=== PATIENT | male | born 1990 | race Hispanic/Latino ===

== ENCOUNTER 2020-07-04 06:52 | Outpatient (NON) | payer OTHER, SELFPAY ==
[2020-07-04 19:19] LABS: SARS-CoV-2 RNA PCR Positive
== END 2020-07-04 06:53 ==
PROVIDERS: PCP Family Medicine; Visit Provider Family Medicine
DX: R68.89 Other general symptoms and signs (principal); U07.1 COVID-19
CPT/HCPCS: 87635; C9803; U0003

== ENCOUNTER 2020-10-03 15:25 | Emergency (ER) | payer OTHER, SELFPAY ==
--- NOTE | 2020-10-03 15:46 | ECG_ITS ---
Measurements Intervals [place] Rate: P: SC: QRS: QRSD: T: QT: QTc: Interpretive Statements SINUS RHYTHM POSSIBLE LEFT ATRIAL ENLARGEMENT INTRAVENTRICULAR CONDUCTION DELAY BORDERLINE ECG Electronically Signed On 10-05-2020 12:59:34 [employer]CH[employer] by Adan Canela D.O.
[2020-10-03 15:47] VITALS: BP 138/73; PULSE 76; RESP 16; TEMP 37.4; O2SAT 100
--- NOTE | 2020-10-03 16:05 | ED.CHESTPAIN ---
HPI - Chest Pain General Chief Complaint: Chest Pain Stated Complaint: CP Source: patient and RN notes reviewed Mode of arrival: ambulatory Limitations: no limitations History of Present Illness HPI narrative: This is a 30-year-old white male that presented to urgent care today complaining of chest pains with shortness of breath, and dizziness, diarrhea frequent urinations. According to patient he was diagnosed with Covid in June patient noted at that time he did not have shortness of breath but shortly afterwards he developed shortness of breath he also noted that he was having chest pain that last approximately 10 minutes he described the chest pain as a burning sensation to the left side of his chest that was accompanied with shortness of breath. Patient does have a history of GERD he notes that the pain that he is currently feeling does not feel like GERD. Patient noted that today after lunch he had increased chest pain that did not go away with shortness of breath and also dizziness he also noted that he developed frequent urination with diarrhea. Patient has been transferred to [facility] for further testing to rule out [place]. He did receive aspirin before discharge his EKG indicated sinus rhythm with a heart rate of 61. Patient declined EMS transport to [facility] he was advised that we recommend transport via EMS due to safety reasons. Patient will be transported himself over to ed. MD complaint: chest pain Related Data Home Medications Medication Instructions Recorded Confirmed No Home Medications 10/03/20 10/03/20 Allergies Allergy/AdvReac Type Severity Reaction Status Date / Time lactose AdvReac Unknown Verified 10/03/20 15:47 Review of Systems Review of Systems: All systems reviewed & are unremarkable except as noted in HPI and below PMFSH Family History Family History Father Diabetes mellitus Grandparent Diabetes mellitus Social History Social History Smoking status: Current every day smoker Second hand tobacco smoke exposure: No Alcohol intake: current Gender identity (if verbalized by the patient): Male Exam Narrative: Exam Narrative: GENERAL: This is a well-nourished, well-developed patient, in no apparent distress. HEAD: normocephalic, atraumatic. EYES: PERRL. Sclera clear/white. Vision is grossly intact. EARS: External ears normal, auditory canals clear and without drainage, TMs normal without perforation. Hearing grossly intact. NOSE: External nose normal with no obvious nasal discharge, nares without redness, no rhinorrhea. THROAT: Mucous membranes moist, posterior pharynx clear. NECK: Neck supple, non-tender without lymphadenopathy, masses or thyromegaly. CARDIOVASCULAR: Regular rate and rhythm without murmurs, gallops, or rubs. RESPIRATORY: Clear to auscultation. Breath sounds equal bilaterally. No wheezes, rales, or rhonchi. GASTROINTESTINAL: Abdomen soft, non-tender, nondistended. Bowel sounds are active. No hepato-splenomegaly, or palpable masses. No guarding. SKIN: warm, intact with no suspicious lesions or rash, good texture and turgor. NEURO: awake, alert, and oriented to person, place and time. There were no obvious focal neurologic abnormalities. Steady gait EXTREMITIES: Normal range of motion. No edema. No calf tenderness. Negative Homans sign bilaterally. BACK: Nontender without deformity or crepitance. No flank tenderness. Course Course Emergency Course: Patient was transferred to [facility] for further testing Vital Signs Vital signs: Vital Signs Temperature 99.4 F 10/03/20 15:47 Pulse Rate 76 10/03/20 15:47 Respiratory Rate 16 10/03/20 15:47 Blood Pressure 138/73 10/03/20 15:47 Pulse Oximetry 100 10/03/20 15:47 Temperature 99.4 F 10/03/20 15:47 Pulse Rate 76 10/03/20 15:47 Respiratory Rate 16
[2020-10-03] MEDS: ASPIRIN 325 MG TABLET PO (16:07)
== END 2020-10-03 16:07 | disposition short-term general hospital (02) ==
PROVIDERS: Emergency Provider Nurse Practitioner; PCP Family Medicine
DX: R06.00 Dyspnea, unspecified (principal); R07.9 Chest pain, unspecified; F17.200 Nicotine dependence, unspecified, uncomplicated; K21.9 Gastro-esophageal reflux disease without esophagitis
CPT/HCPCS: 93005; 99203; A9270; G0463

== ENCOUNTER 2020-10-03 16:21 | Emergency (ER) | payer OTHER, SELFPAY ==
[2020-10-03] VITALS (14 sets, daily range): BP systolic 129–145; BP diastolic 76–83; PULSE 65–80; RESP 14–20; TEMP 36.7; O2SAT 93–100
--- NOTE | ~2020-10-03 | XR_ITS ---
EXAMINATION: XR chest 2V EXAM DATE: 10/03/2020 17:02 INDICATION: Left-sided upper chest pain worsening today with exertion. Symptoms for 3 months. TECHNIQUE: Frontal and lateral projections of the chest obtained and reviewed. There is no prior angela dy for comparison. FINDINGS: The lungs are clear. There are no pleural effusions. The cardiomediastinal silhouette is within normal limits. There is no pneumothorax suspected. The bones and soft tissues are unremarkab le. IMPRESSION: No acute cardiopulmonary findings. Reviewed, dictated and finalized at location [facility]
--- NOTE | 2020-10-03 16:32 | ECG_ITS ---
Measurements Intervals [place] Rate: 75 P: 49 ND: 175 QRS: 45 QRSD: 114 T: 17 QT: 390 QTc: 438 Interpretive Statements SINUS RHYTHM POSSIBLE LEFT ATRIAL ENLARGEMENT INTRAVENTRICULAR CONDUCTION DELAY BASELINE ARTIFACT- I, II, AVR, AVF BORDERLINE ECG Electronically Signed On 10-03-2020 16:51:50 [employer] by Adan Canela D.O.
[2020-10-03 16:57] LABS: Basophils Percent Auto 0.5 % (0.2-1.2); Eosinophils Percent Auto 0.2 % (0-4.4); Hematocrit 46.2 % (42.0-52.0); Immature Granulocyte Absolute 0.03 K/mm3 (0.00-0.031); Immature Granulocyte Percent A 0.3 % (0-0.5); Lymphocytes Absolute Auto 2.07 K/mm3 (0.9-3.2); Lymphocytes Percent Auto 23.7 % (18.3-44.2); Mean Corpuscular HGB Conc 34.6 g/dl (32-36); Mean Corpuscular Hemoglobin 29.3 pg (26-34); Mean Corpuscular Volume 84.5 fl (80-100); Mean Platelet Volume 9.6 fl (7.4-10.4); Monocytes Absolute Auto 0.5 K/mm3 (0.1-0.6); Monocytes Percent Auto 5.8 % (2.6-8.5); Neutrophils Absolute Auto 6.1 K/mm3 (1.3-6.7); Neutrophils Percent Auto 69.5 % (45.5-73.1); Platelet Count Result 253 k/mm3 (150-375); Red Blood Count 5.47 M/mm3 (4.6-6.20); Red Cell Distribution Width 13.2 % (11.5-14.5); White Blood Count 8.7 K/mm3 (4.5-10.0)
--- NOTE | 2020-10-03 16:59 | ED.CHESTPAIN ---
HPI - Chest Pain General Chief Complaint: Chest Pain Stated Complaint: CP Time Seen by Provider: 10/03/20 16:38 Source: patient Mode of arrival: ambulatory Limitations: no limitations History of Present Illness HPI narrative: Patient is a 30-year-old male complaining of left chest wall pain, 3 out of 10, sharp, nonradiating x1 month, intermittent, but today states it was constant and that is why he came to the emergency room. Patient states that the pain is worse when he takes a deep breath. Patient denies any shortness of breath, abdominal pain, nausea, vomiting, diaphoresis, fever or chills. Related Data Home Medications Medication Instructions Recorded Confirmed omeprazole [Prilosec] 20 mg PO DAILY 10/03/20 10/03/20 Allergies Allergy/AdvReac Type Severity Reaction Status Date / Time lactose Allergy Unknown BLOATING, Verified 10/03/20 16:30 GAS, ABD PAIN, DIARRHEA Review of Systems Review of Systems: All systems reviewed & are unremarkable except as noted in HPI and below Constitutional: Constitutional: Denies body ache(s), Denies chills, Denies excessive sweating, Denies fatigue, Denies fever(s), Denies headache(s), Denies lethargy, Denies malaise, Denies weakness and Denies weight loss Eyes: Eyes: Denies blurry vision, Denies change in vision and Denies loss of vision ENT: Denies dizziness, Denies ear discharge, Denies headache(s), Denies lip swelling, Denies epistaxis, Denies nasal congestion, Denies neck pain, Denies throat swelling and Denies tongue swelling Cardiovascular: Cardiovascular: Denies diaphoresis, Denies rapid heart rate, Denies edema, Denies irregular heart rhythm, Denies lightheadedness, Denies palpitations, Denies dyspnea and Denies dyspnea on exertion Respiratory: Respiratory: Denies chest congestion, Denies cough, Denies hemoptysis, Denies dyspnea and Denies dyspnea on exertion Gastrointestinal: Gastrointestinal: Denies abdominal pain, Denies melena, Denies hematochezia, Denies diarrhea, Denies nausea, Denies vomiting and Denies hematemesis Musculoskeletal: Musculoskeletal: Denies abnormal gait, Denies deformity, Denies joint swelling, Denies limited range of motion, Denies neck pain and Denies numbness Neurologic: Denies Abnormal speech present, Denies abnormal gait, Denies confusion, Denies dizziness, Denies headache(s), Denies focal weakness, Denies loss of vision, Denies numbness, Denies Other visual disturbances, Denies Sensory deficit (Neuro) and Denies weakness Psychiatric: Psychiatric: Denies confusion, Denies depression, Denies auditory hallucinations, Denies homicidal ideation and Denies suicidal ideation Endocrine: Endocrine: Denies cold intolerance, Denies excessive sweating, Denies fatigue, Denies heat intolerance and Denies palpitations Hematologic/Lymphatic: Hematologic/Lymphatic: Denies easy bleeding and Denies easy bruising Allergic/Immunologic: Allergic/Immunologic: Denies lip swelling, Denies throat swelling and Denies tongue swelling PMFSH Social History Social History Gender identity (if verbalized by the patient): Male Exam Const: General: cooperative, healthy appearing, comfortable, no acute distress, well developed, alert and awake; No confusion Orientation/consciousness: oriented to person, oriented to place, oriented to time, patient oriented x3 and No confusion Limitations: no limitations HENMT: Head: normal to inspection, normocephalic and atraumatic Ears: hearing grossly normal bilaterally, TM normal on the right and TM normal on the left General nose exam: Normal external nose present, Normal nares present and No nasal discharge present Face and sinus: normal facial exam Mouth: Yes Normal oral and palatal mucosa present, Yes lip normal, Yes tongue normal and Yes oropharynx normal Throat: posterior oropharynx normal, tonsils normal and uvula midline Eyes: General: appearance normal, both eyes and all related structures Pupils: Equal, round and
[2020-10-03 17:08] LABS: Anion Gap 11 mmol/L (8-16); Blood Urea Nitrogen 10 mg/dL (9-20); Calcium 10.1 mg/dL (8.4-10.2); Carbon Dioxide 27 mmol/L (22-30); Chloride 102 mmol/L (98-107); Estimated CRCL calculation 103 ml/min; Estimated Glomerular Filt Rate > 60; Glucose 101 mg/dL (75-110); Potassium 4.1 mmol/L (3.4-5.0); Sodium 140 mmol/L (137-145)
[2020-10-03 17:15] LABS: INR 0.9; Prothrombin Time 12.9 Seconds (11.1-14.7)
[2020-10-03 17:16] LABS: Partial Thromboplastin Time 25.6 SECONDS (22.3-36.8)
[2020-10-03 17:20] LABS: Troponin I < 0.012 ng/mL (0.000-0.034)
== END 2020-10-03 18:58 | disposition home or self-care (01) ==
PROVIDERS: Emergency Provider Emergency Medicine; PCP Family Medicine
DX: R07.89 Other chest pain (principal); R94.31 Abnormal electrocardiogram [ECG] [EKG]; I45.9 Conduction disorder, unspecified
CPT/HCPCS: 36415; 71046; 80048; 84484; 85025; 85610; 85730; 93005; 99284; A9270

== ENCOUNTER 2021-01-07 14:54 | Outpatient (CLI) | payer OTHER, SELFPAY ==
[2021-01-15 10:50] LABS: Tissue Transglutaminase IgA Ab 1 U/mL (<4)
[2021-01-15 13:04] LABS: Tissue Transglutaminase IgG Ab 3 U/mL (<6)
== END 2021-01-07 14:55 | disposition home or self-care (01) ==
LOC: ANHLAB 14:58
PROVIDERS: PCP Family Medicine; Visit Provider Nurse Practitioner Family
DX: R14.0 Abdominal distension (gaseous) (principal); R19.7 Diarrhea, unspecified
CPT/HCPCS: 36415; 83516

== ENCOUNTER → 2021-03-09 00:21 | Outpatient (CLI) | payer OTHER, SELFPAY ==
[2021-03-09 17:56] LABS: SARS-CoV-2 RNA PCR Negative
== END ==
PROVIDERS: PCP Family Medicine; Visit Provider Internal Medicine Gastroenterology
DX: Z01.812 Encounter for preprocedural laboratory examination (principal); Z20.822 Contact with and (suspected) exposure to COVID-19
CPT/HCPCS: C9803; U0003; U0005

== ENCOUNTER 2021-03-12 02:20 | Day surgery (SDC) | payer OTHER, SELFPAY ==
[2021-03-01 12:46] VITALS: BMI 31.1
[2021-03-12 07:36] VITALS: BP 129/85; PULSE 75; RESP 16; TEMP 36.3; O2SAT 98; BMI 31.8
--- NOTE | 2021-03-12 07:51 | WPDANESEPPF ---
Anes - Initial Pre Proc Eval Procedure: Operation Date: 03/12/21 08:30 Proposed Procedures p Esophagogastroduodenoscopy - Abdifatah Mari MD Date/Time: 03/12/21 07:51 Surgeon: Abdifatah Mari MD Pre Op Diagnosis: GERD Patient Data Age: 30 Gender: M Height: 1.73 m Weight: 95.1 kg Last Vital Signs Temp 36.3 C L 03/12/21 07:36 Pulse 75 03/12/21 07:36 Resp 16 03/12/21 07:36 BP 129/85 03/12/21 07:36 Pulse Ox 98 03/12/21 07:36 Allergies Allergy/AdvReac Type Severity Reaction Status Date / Time lactose Allergy Unknown BLOATING, Verified 03/12/21 07:32 GAS, ABD PAIN, DIARRHEA Home Medications Medication Instructions Recorded Confirmed Type omeprazole [Prilosec] 20 mg PO DAILY 10/03/20 03/12/21 History galcanezumab-gnlm [Emgality Pen] 120 mg SUBCUT MONTHLY 03/01/21 03/12/21 History Patient hx anesthesia problems: none Family hx anesthesia problems: none [facility] Past Medical History Medical History (Updated 01/07/21 @ 15:47 by Luis Daniel Mcclain MD) GERD (gastroesophageal reflux disease) Irritable bowel syndrome with diarrhea Family History Family History Father Diabetes mellitus Grandparent Diabetes mellitus Social History Social History Years smoked: 7 Smoking status: Current some day smoker Second hand tobacco smoke exposure: No Alcohol intake: current Alcohol use details: socially Living arrangements: with family Gender identity (if verbalized by the patient): Male Spiritual care concerns: No Anes - Eval Final PreProcedure Day of Procedure 03/12/21 07:51 Patient weight: overweight Heart: regular rate and rhythm Lungs: clear to auscultation and normal air movement Airway: Mallampati scale class II Neurological: alert and oriented Last oral intake: >/= 8 hours ASA classification: II Emergent: no Anesthetic plan: proceed Anesthesia type and monitoring: general GIVS Informed Consent: The patient's anesthetic plan and its attendant risks and benefits were discussed with the patient/family/POA. Questions were solicited and answers provided to the satisfaction of the patient/family/POA.
[2021-03-12] MEDS: LACTATED RINGERS 1,000 ML 150 ML IV CONT (07:52)
--- NOTE | 2021-03-12 07:54 | WPDHPUPDATE1 ---
History and Physical Update Update Date/Time: 03/12/21 07:54 History and Physical has been reviewed, including an updated exam of the patient. There are NO changes in the patient's condition. Risks, benefits, and alternatives have been discussed and questions answered. Patient agrees to proceed with procedure.
--- NOTE | 2021-03-12 07:54 | WPDGICN ---
Assessment and Plan Assessment and plan (1) Irritable bowel syndrome with diarrhea: Code(s): K58.0 - Irritable bowel syndrome with diarrhea Status: Acute Assessment and Plan: Patient with long history of abdominal pain in consider irritable bowel syndrome. He has been unable to afford medications and intolerant of some medications plan is continue fiber supplementation an EGD is recommended because of ongoing pain in this report follow separately. (2) GERD (gastroesophageal reflux disease): Code(s): K21.9 - Gastro-esophageal reflux disease without esophagitis Status: Acute Assessment and Plan: Patient felt to have GE reflux disease. Plan is for EGD to assess more thoroughly. The same time any additional pathology will be reviewed. Patient currently on omeprazole will continue this medication. GI Consult Note Consult date/time: 03/12/21 07:54 HPI: Gregory Goode Jr. is a 30 year old male With a long history of IBS. Patient complains of gurgling in his abdomen. He has had diarrhea rather persistently. Occasional epigastric discomfort. There is a question of acid reflux in the past. Patient has been on therapy for are IBS with antispasmodic agents but this was discontinued because it made him feel poorly. Patient has tried fiber supplementation in this is failed to alleviate his diarrhea. Patient was given a prescription for Viberzi, and Xifaxan subsequently, but was unable take these medications because of their excess cost. Recent colonoscopy was unremarkable. Patient presents today for EGD because of ongoing abdominal discomfort. Review of Systems Review of Systems: All systems reviewed & are unremarkable except as noted in HPI and below PMFSH Past Medical History Medical History (Updated 01/07/21 @ 15:47 by Luis Daniel Mcclain MD) GERD (gastroesophageal reflux disease) Irritable bowel syndrome with diarrhea Family History Family History Father Diabetes mellitus Grandparent Diabetes mellitus Social History Social History Years smoked: 7 Smoking status: Current some day smoker Second hand tobacco smoke exposure: No Alcohol intake: current Alcohol use details: socially Living arrangements: with family Gender identity (if verbalized by the patient): Male Spiritual care concerns: No Meds Home Medications and Allergies Home Medications Medication Instructions Recorded Confirmed Type omeprazole [Prilosec] 20 mg PO DAILY 10/03/20 03/12/21 History galcanezumab-gnlm [Emgality Pen] 120 mg SUBCUT MONTHLY 03/01/21 03/12/21 History Allergies Allergy/AdvReac Type Severity Reaction Status Date / Time lactose Allergy Unknown BLOATING, Verified 03/12/21 07:32 GAS, ABD PAIN, DIARRHEA Vital Signs Vital Signs - 24 hr 03/12/21 07:36 Temperature 97.4 F L Pulse Rate 75 Respiratory Rate 16 Blood Pressure 129/85 Pulse Oximetry 98 Exam Narrative: Exam Narrative: Physical exam reveals patient be alert. Vital signs stable. HEENT exam is unremarkable. Patient is anicteric. Lungs are clear to auscultation and percussion. Heart is without murmur or extra sounds. Abdominal exam bowel sounds are present soft nontender with no organomegaly. Digital external rectal exam is normal.
[2021-03-12 08:40] VITALS: BP 114/63; PULSE 66; RESP 18; O2SAT 96
[2021-03-12 08:50] VITALS: BP 108/65; PULSE 62; RESP 20; O2SAT 97
[2021-03-12 09:00] VITALS: BP 119/75; PULSE 64; RESP 20; O2SAT 98
--- NOTE | 2021-03-12 09:44 | SUR.PHASEII ---
0852: DR CORRALES IN TO SEE PT, PT SLEEPING, SPOKE WITH SPOUSE BUT REQUESTS TO SEE PT ONCE AWAKE. 0944: DR CORRALES IN SEEING PT.
== END 2021-03-12 09:50 | disposition home or self-care (01) ==
PROVIDERS: PCP Family Medicine; Visit Provider Internal Medicine Gastroenterology
PROC: 0DJ08ZZ Inspection of Upper Intestinal Tract, Via Natural or Artificial Opening Endoscopic (ICD-10-PCS; CPT 43235; principal; 2021-03-12 08:30)
DX: K21.00 Gastro-esophageal reflux disease with esophagitis, without bleeding (principal); K58.0 Irritable bowel syndrome with diarrhea; F17.200 Nicotine dependence, unspecified, uncomplicated
CPT/HCPCS: 43239; 88305; C9803; J2704; J7120; U0003; U0005

== ENCOUNTER 2021-03-12 08:07 | Outpatient (NON) | payer OTHER, SELFPAY ==
[2021-03-20 01:43] LABS: Pancreatic Elastase, Stool >500 mcg/g
== END 2021-03-12 08:08 | disposition home or self-care (01) ==
PROVIDERS: PCP Family Medicine; Visit Provider Nurse Practitioner Family
DX: R19.7 Diarrhea, unspecified (principal); Z53.9 Procedure and treatment not carried out, unspecified reason
CPT/HCPCS: 99199; 36415

== ENCOUNTER 2021-12-20 07:54 | Outpatient (CLI) | payer OTHER, SELFPAY ==
[2021-12-20 08:45] LABS: Hematocrit 43.9 % (42.0-52.0); Hemoglobin 15.1 g/dL (14.0-18.0); Mean Corpuscular HGB Conc 34.4 g/dl (32-36); Mean Corpuscular Hemoglobin 28.5 pg (26-34); Mean Corpuscular Volume 82.8 fl (80-100); Mean Platelet Volume 9.3 fl (7.4-10.4); Platelet Count Result 313 k/mm3 (150-375); Red Cell Distribution Width 13.2 % (11.5-14.5); White Blood Count 10.7 K/mm3 (4.5-10.0)
[2021-12-20 09:03] LABS: Alanine Aminotransferase 42 U/L (4-50); Albumin Level 4.3 g/dL (3.5-5.1); Alkaline Phosphatase 102 U/L (38-126); Anion Gap 6 mmol/L (8-16); Aspartate Amino Transferase 32 U/L (17-59); Bilirubin,Total 0.6 mg/dL (0.2-1.3); Blood Urea Nitrogen 11 mg/dL (9-20); Calcium 8.8 mg/dL (8.4-10.2); Carbon Dioxide 29 mmol/L (22-30); Chloride 108 mmol/L (98-107); Estimated Glomerular Filt Rate > 60; Glucose 98 mg/dL (65-110); Potassium 3.7 mmol/L (3.4-5.0); Sodium 143 mmol/L (137-145)
== END 2021-12-20 07:55 | disposition home or self-care (01) ==
PROVIDERS: PCP Family Medicine; Visit Provider Nurse Practitioner Family
DX: R19.7 Diarrhea, unspecified (principal)
CPT/HCPCS: 36415; 80053; 85027; 87045; 87427

== ENCOUNTER 2022-08-10 12:23 | Emergency (ER) | payer BC, SELFPAY ==
[2022-08-10 13:13] VITALS: BP 131/79; PULSE 83; RESP 20; TEMP 36.4; O2SAT 99
--- NOTE | 2022-08-10 14:33 | ED.URI ---
HPI - URI/Sore Throat General Chief Complaint: Upper Respiratory Infection Stated Complaint: Sore Throat Time Seen by Provider: 08/10/22 14:33 Source: patient Mode of arrival: ambulatory Limitations: no limitations History of Present Illness HPI Narrative: 32-year-old male presents with complaint of congestion, cough, sore throat for 3 weeks. States he was feeling better earlier this week for 2 days and then symptoms started again. States sore throat is now worse. Reports body aches and chills. Afebrile. Denies nausea vomiting diarrhea. No chest pain or shortness breath. Taking DayQuil NyQuil to treat symptoms. All systems reviewed and negative except as noted above. Related Data Home Medications Medication Instructions Recorded Confirmed omeprazole 20 mg capsule,delayed 20 mg PO DAILY 10/03/20 08/10/22 release Allergies Allergy/AdvReac Type Severity Reaction Status Date / Time lactose Allergy Unknown BLOATING, Verified 08/10/22 14:27 GAS, ABD PAIN, DIARRHEA Review of Systems Review of Systems: CONSTITUTIONAL: Denies fever, chills, or sweats. EYES: Denies visual changes, redness, or discharge. ENT: Reports rhinorrhea, congestion, sore throat. Denies otalgia. CARDIOVASCULAR: Denies chest pain, palpitations, or edema. RESPIRATORY: reports cough. Denies dyspnea. GASTROINTESTINAL: Denies abdominal pain, nausea, vomiting, or diarrhea. GENITOURINARY: Denies dysuria or hematuria. SKIN: Denies rash or itching. MUSCULOSKELETAL: Denies back pain, joint pain, or myalgia. NEUROLOGIC: Denies headache, numbness, or weakness. PSYCHIATRIC: Denies anxiety or depression. All other systems reviewed are negative, except as documented in HPI. [facility] Past Medical History Medical History (Updated 08/10/22 @ 15:21 by Yudith Monae NP) Diarrhea GERD (gastroesophageal reflux disease) Irritable bowel syndrome with diarrhea Surgical History Surgical History History of vasectomy Family History Family History Father Diabetes mellitus Grandparent Diabetes mellitus Social History Social History Years smoked: 7 Smoking status: Current some day smoker Second hand tobacco smoke exposure: No Alcohol intake: current Alcohol use details: socially Gender identity (if verbalized by the patient): Male Spiritual care concerns: No Comments At time of signature, agree with nursing past medical, surgical, social and family history. There is no relevant family history pertinent to the presenting complaint. Exam Narrative: GENERAL: This is a well-nourished, well-developed patient, in no apparent distress. HEAD: normocephalic, atraumatic. EYES: PERRL. Sclera clear/white. Vision is grossly intact. EARS: External ears normal, auditory canals clear and without drainage, fluid bilateral TMs with erythema. NOSE: External nose normal with Clear nasal drainage, moderate congestion. Bilateral maxillary sinus tenderness. THROAT: Mucous membranes moist, Erythema and swelling posterior pharynx. NECK: Neck supple, non-tender without lymphadenopathy, masses or thyromegaly. CARDIOVASCULAR: Regular rate and rhythm without murmurs, gallops, or rubs. RESPIRATORY: Clear to auscultation. Breath sounds equal bilaterally. No wheezes, rales, or rhonchi. SKIN: warm, Dry, intact with no suspicious lesions or rash, good texture and turgor. NEURO: awake, alert, and oriented to person, place and time. There were no obvious focal neurologic abnormalities. EXTREMITIES: No joint tenderness, effusion, or edema noted. Course Course Level of Care: Express Care Visit Vital Signs Vital signs: Vital Signs Temperature 36.4 C 08/10/22 13:13 Pulse Rate 83 08/10/22 13:13 Respiratory Rate 20 08/10/22 13:13 Blood Pressure 131/79 08/10/22 13:13 P
== END 2022-08-10 15:36 | disposition home or self-care (01) ==
PROVIDERS: Emergency Provider Nurse Practitioner Family; PCP Family Medicine
DX: J01.90 Acute sinusitis, unspecified (principal); H65.03 Acute serous otitis media, bilateral; F17.290 Nicotine dependence, other tobacco product, uncomplicated; K21.9 Gastro-esophageal reflux disease without esophagitis
CPT/HCPCS: 87081; 87804; 87880; 99213; G0463

== ENCOUNTER 2025-07-09 18:55 | Emergency (ER) | payer BC, SELFPAY ==
--- NOTE | ~2025-07-09 | XR_ITS ---
EXAMINATION: XR abdomen/kub 1V, 07/09/2025 17:08 CDT HISTORY: LT flank pain, hematuria, couple hours, hx of stones COMPARISON: No comparisons available. Technique: 3 view. Findings: Bowel gas pattern unremarkable. No obstruction. No free air. No abnormal calcifications No acute osseous abnormality. Impression: 1. No acute abnormality. Reviewed, dictated and finalized at location P. Impression: 1. No acute abnormality.
--- NOTE | 2025-07-09 19:01 | ED_ITS ---
HPI - Back Pain/Injury General Chief Complaint: Back Pain/Injury Stated Complaint: lower back pain Time Seen by Provider: 07/09/25 18:57 Source: patient Mode of arrival: ambulatory Limitations: no limitations History of Present Illness HPI Narrative: Patient is a 35-year-old male who presents with left flank pain. Patient has history of kidney stones on the right side and states this feels the same. Patient has also noticed blood in urine. Related Data Allergies Allergy/AdvReac Type Severity Reaction Status Date / Time lactose Allergy Unknown BLOATING, Verified 07/09/25 19:27 GAS, ABD PAIN, DIARRHEA Review of Systems Review of Systems: All systems reviewed & are unremarkable except as noted in HPI and below Constitutional: Constitutional: Denies body ache(s), Denies chills, Denies fatigue, Denies fever(s), Denies headache(s), Denies malaise and Denies weakness Eyes: Eyes: Denies blurry vision, Denies irritation and Denies loss of vision ENT: Denies otalgia, Denies headache(s), Denies nasal discharge, Denies sinus pain and Denies sore throat Cardiovascular: Cardiovascular: Denies chest pain, Denies irregular heart rhythm and Denies dyspnea Respiratory: Respiratory: Denies dyspnea Gastrointestinal: Gastrointestinal: Denies abdominal pain, Denies melena, Denies hematochezia, Denies diarrhea, Denies nausea and Denies vomiting Genitourinary: Genitourinary: Reports hematuria and Reports flank pain Musculoskeletal: Musculoskeletal: Reports back pain, Denies myalgias and Denies arthralgias Integumentary/Breasts: Skin/Breast: Denies pruritus and Denies rash Neurologic: Denies headache(s), Denies loss of vision and Denies weakness Psychiatric: Psychiatric: Reports no additional psychiatric complaints Endocrine: Endocrine: Denies fatigue PMFSH Past Medical History Medical History Diarrhea Irritable bowel syndrome with diarrhea GERD (gastroesophageal reflux disease) Surgical History Surgical History History of vasectomy Family History Family History Father Diabetes mellitus Grandparent Diabetes mellitus Social History Social History Years smoked: 7 Smoking status: Current some day smoker Tobacco type: cigarettes Second hand tobacco smoke exposure: No Alcohol intake: current Alcohol use details: socially Substance use: never Substance use type: does not use Living arrangements: with family Gender identity (if verbalized by the patient): Male Spiritual care concerns: No Comments At time of signature, agree with nursing past medical, surgical, social and family history. There is no relevant family history pertinent to the presenting complaint. Exam Const: General: cooperative, healthy appearing, comfortable, no acute distress and well nourished Nutritional Appearance: well nourished Orientation/ consciousness: patient oriented x3 Limitations: no limitations HENMT: Head: normal to inspection, normocephalic and atraumatic Ears: hearing grossly normal bilaterally and external ears normal Face/Nose/Sinus: Normal external nose present, normal facial exam and face symmetric Face and sinus: normal facial exam and face symmetric Mouth: Yes lip normal Eyes: General: appearance normal, both eyes and all related structures Alignment and Position: alignment normal and position normal Periorbital: periorbital findings normal Eyelids: eyelids normal Pupils: Equal, round and reactive pupils present EOM: EOMs intact bilaterally Neck: Neck: normal visual inspection, full ROM and supple Chest: Chest palpation & inspection: normal inspection of the chest Resp: Effort & Inspection: normal respiratory effort and able to speak in complete sentences Auscultation: clear to auscultation bilaterally Cardio: Rate: regular rate Rhythm: regular rhythm Heart sounds: S1 normal heart sound present and S2 normal heart sound present GI: Inspection: normal to inspection Skin: General skin exam: normal color and no rashes or lesions noted Neuro: General: patient oriented x3 and moves all extremities Cranial nerves: Yes Equal, round and reactive pupils present Speech: normal speech Gait exam (Neuro): Normal gait present Extrem: General: normal to inspection, full ROM and no edema Psych: Appearance: grossly normal and well kempt Mental Status: mental status grossly normal Speech and movement: Normal speech and movement present Affect: normal affect Attitude: cooperative Thought process: Normal thought process present Course Course Emergency Course: Patient is aware of diagnosis, understands and agrees to treatment plan. Anticipatory guidance given. Patient agrees to follow-up as directed and is aware of reasons to seek care at the emergency department. Portions of this record may have been created with voice recognition software Level of Care: Express Care Visit Vital Signs Vital signs: Vital Signs Temperature 36.9 C 07/09/25 19:02 Pulse Rate 66 07/09/25 19:02 Respiratory Rate 18 07/09/25 19:02 Blood Pressure 127/75 07/09/25 19:02 Pulse Oximetry 100 07/09/25 19:02 Oxygen Delivery Room Air 07/09/25 19:02 Temperature 36.9 C 07/09/25 19:02 Pulse Rate 66 07/09/25 19:02 Respiratory Rate 18 07/09/25 19:02 Blood Pressure 127/75 07/09/25 19:02 Pulse Oximetry 100 07/09/25 19:02 Oxygen Delivery Room Air 07/09/25 19:02 Reviewed MDM - Back Pain/Injury MDM Narrative Medical decision making narrative: Patient given shot of Toradol and prescription for Flomax along with a strainer. Patient has had kidney stones in the past but has always been able to pass them. Patient comfortable going home and trying to pass stone on his own Pt well hydrated appearing, in no respiratory distress, hemodynamically stable. Recommend supportive care. The patient is stable at time of discharge the clinical impression was discussed and the patient was given the opportunity to ask questions, which were addressed as completely as possible given the information available at present. Anticipatory guidance and return to care precautions were discussed and the importance of primary care follow-up was stressed and encouraged. The patient voiced understanding of the plan, indications to return, and the need for follow-up. Exam findings show no acute concerns or changes Patient is appropriate for outpatient treatment and follow-up. Differential Diagnosis Differential diagnosis: Likely sciatica, strain of lumbar region, renal colic, pyelonephritis and other (Kidney stone) Medical Records Attestation: I reviewed the patient's medical records. Lab Data Labs: Lab Results 07/09/25 Range/Units 19:09 POC Urine Color Dark POC Urine Clarity Cloudy POC Urine pH 5.5 POC Ur Specif [place] 1.030 POC Urine Protein 2+ (Negative) POC Ur Glucose (UA) Negative (Negative) POC Urine Ketones Trace (Negative) POC Urine Blood 3+ (Negative) POC Urine Nitrite Negative (Negative) POC Urine Bilirubin 1+ (Negative) POC Urine Urobilinogen 0.2 POC U Leukocyte Esteras Negative (Negative) Imaging Data Attestation: I personally reviewed and interpreted this imaging study as follows: My impression: calcifications noted at the left Ureterovesical junction. Radiologist's impression: EXAMINATION: XR abdomen/kub 1V, 07/09/2025 17:08 CDT HISTORY: LT flank pain, hematuria, couple hours, hx of stones COMPARISON: No comparisons available. Technique: 3 view. Findings: Bowel gas pattern unremarkable. No obstruction. No free air. No abnormal calcifications No acute osseous abnormality. Impression: 1. No acute abnormality. Reviewed, dictated and finalized at location P. Discharge Plan Discharge Clinical Impression: Kidney stone on left side Patient Disposition: Home Condition: Stable Instructions: Kidney Stones (ED), How to Strain Your Urine (ED) Additional Instructions: Flomax as prescribed. Pain medication as needed and directed. Drink plenty of fluids. Strain urine to collect stone. Call your doctor in the morning to make a follow-up appointment for further care. Return to the ER if needed for severely worsening symptoms or problems. Patient Language: Djiboutian Prescriptions: New tamsulosin 0.4 mg capsule 0.4 mg PO DAILY Qty: 7 0RF Follow-up/Referrals: Nikko Dan MD [Primary Care Provider, Family Practice] Stand Alone Forms: Work/School Release IP Time of Disposition: 19:28
[2025-07-09 19:02] VITALS: BP 127/75; PULSE 66; RESP 18; TEMP 36.9; O2SAT 100
[2025-07-09 19:11] LABS: EDUAAPPEAR Cloudy; EDUABILI 1+ (Negative); EDUABLOOD 3+ (Negative); EDUACOLOR1 Dark; EDUAGLUCOSE Negative (Negative); EDUAKETONE Trace (Negative); EDUALEUKO Negative (Negative); EDUANITRATE Negative (Negative); EDUAPH 5.5; EDUAPROTEIN 2+ (Negative); EDUASPGRAVITY 1.030; EDUAUROBILI 0.2
[2025-07-09] MEDS: KETOROLAC 30 MG/ML VIAL (*BKC) IM (19:31)
== END 2025-07-09 19:48 | disposition home or self-care (01) ==
PROVIDERS: Emergency Provider Nurse Practitioner Family; PCP Family Medicine
DX: N20.0 Calculus of kidney (principal); F17.210 Nicotine dependence, cigarettes, uncomplicated; K21.9 Gastro-esophageal reflux disease without esophagitis; Z98.52 Vasectomy status
CPT/HCPCS: 74018; 81003; 96372; 99213; G0463; J1885

== ENCOUNTER 2025-07-10 10:57 | Emergency (ER) | payer BC, SELFPAY ==
--- NOTE | ~2025-07-10 | CT_ITS ---
EXAMINATION: CT abdomen pelvis w con DATE: 07/10/2025 14:54 INDICATION: Left flank pain TECHNIQUE: Computed tomography (CT) of the abdomen and pelvis was performed with 100 mL Omnipaque-350 intravenous contrast. Automated exposure control and iterative reconstruction technique were employed. The dose-length product was 643.09 mGy-cm. COMPARISON: CT dated 06/23/2016 FINDINGS: Mild dependent atelectasis in both lower lobes. Heart size normal. No pericardial or pleural effusion. Liver, gallbladder, spleen, pancreas, bilateral adrenal glands and right kidney are normal. There is a mildly delayed left nephrogram and mild left hydroureteronephrosis extending to a 3 mm obstructing stone within 1 cm of the left ureterovesicular junction. Bladder is normal. Bowels including the appendix are normal. No free intraperitoneal gas or fluid. No pathologically enlarged abdominal or pelvic lymphadenopathy. Bones are unremarkable. IMPRESSION: 1. Obstructing 3 mm stone near the left ureterovesicular junction with mild left hydronephrosis and mildly delayed left nephrogram. Reviewed, dictated and finalized at location A. IMPRESSION: 1. Obstructing 3 mm stone near the left ureterovesicular junction with mild lef t hydronephrosis and mildly delayed left nephrogram.
[2025-07-10 11:26] VITALS: BP 140/85; PULSE 83; RESP 16; TEMP 36.8; O2SAT 98
[2025-07-10 11:54] LABS: Add Urine Microscopic? YES; Appearance Urine Cloudy (Clear); Glucose Urine UA Negative (Negative); Leukocyte Esterase Ur Negative LEU/UL (Negative); Nitrate Urine Negative (Negative); Specific Grav Ur 1.013 (1.001-1.035)
--- OUTSIDE RECORDS SUMMARY | 2025-07-10 12:12 | XMS_ITS | Clinical Summary ---
Author Organization [facility] Address [address] [place] [address] Care Team Providers Care French Tutor Name Role Phone Endy Nikki Vitale RN Unavailable [phone] Nikko Dan MD Primary Care Provider [phone] Source Comments [facility],non-owned Affiliates and Associated Physician Practices is amultiple site organization consisting of ambulatory clinics and hospital sitesin [place], [place], [place] and [place]. This disclosure is being madepursuant to the Care Everywhere program and may not contain all information available regarding this patient. Last updated 18.[facility] [employer] Allergies Active Allergy Reactions Criticality Noted Date Comments Minocycline 02/01/2014 Medications * Be aware that medications may not be up to date on this document. Alwaysverify current medications with the patient. esomeprazole (NEXIUM) 40 MG capsule Take 40 mg by mouth daily before breakfast. Active acetaminophen (TYLENOL) 325 MG tablet Take 2 Tabs by mouth every 4 hours as needed for Fever. Maximum allowable Acetaminophen amount = 4 Grams (4000 mg) / 24 hours. 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 Gender Identity Not on file Sexual Orientation Not on file Last Filed Vital Signs Vital Sign Reading Time Taken Comments Blood Pressure 110/65 02/04/2014 1:22 PM CDT Pulse 75 02/04/2014 1:22 PM CDT Temperature 36.3 C (97.4 F) 02/04/2014 1:22 PM CDT Respiratory Rate 18 02/04/2014 1:22 PM CDT Oxygen Saturation 99% 02/04/2014 1:22 PM CDT Inhaled Oxygen Concentration - - Weight 77.1 kg (170 lb) 02/01/2014 1:52 PM CDT Height 170.2 cm (5' 7) 02/01/2014 1:52 PM CDT Body Mass Index 26.63 02/01/2014 1:52 PM CDT Plan of Treatment Health Maintenance Due Date Last Done Comments HIV SCREENING 2004 HEPATITIS C SCREENING 05/21/2007 DTAP/TDAP/TD VACCINES (1 - Tdap) 2008 HEPATITIS B VACCINE (1 of 3 - 19+ 3-dose series) 2008 HPV VACCINE (1 - 3-dose SCDM series) 2016 DEPRESSION SCREENING 09/28/2024 COVID-19 VACCINE (1 - 2023-2 5 season) 2025 INFLUENZA VACCINE (#1) 2025 ZOSTER VACCINE (1 of 2) 2039 HIB VACCINE Aged Out No longer eligi ble based on patient's age to complete this topic MENINGOCOCCAL (Group B) VACC INE SHARED DECISION-MAKING Aged Out No longer eligibl e based on patient's age to complete this topic MENINGOCOCCAL GROUPS A/C/Y/W VACCINE Aged Out No longer eligible b ased on patient's age to complete this topic PNEUMOCOCCAL VACCINE Aged Out No long er eligible based on patient's age to complete [place] [address] [facility] [place] [address] [address] Advance Directives * Full Code (Latest Code Status on File) Date Activated Date Inactivated Comments 02/01/2014 4:49 PM 02/04/2014 3:52 PM Care Teams French Tutor Relationship Specialty Start Date End Date Nikko Dan MD [address] [place] [address] PCP - General Family Medicine 02/02/14 Nikki Schumacher, RN Steel Burner 02/02/14
[2025-07-10 12:21] LABS: Hematocrit 42.5 % (42.0-52.0); Hemoglobin 14.9 g/dL (14.0-18.0); Immature Granulocyte Percent A 0.4 % (0-0.5); Lymphocytes Absolute Auto 1.90 K/mm3 (0.9-3.2); Mean Corpuscular HGB Conc 35.1 g/dl (32-36); Mean Corpuscular Hemoglobin 28.7 pg (26-34); Mean Corpuscular Volume 81.9 fl (80-100); Nucleated Red Blood Cells Absolute Auto 0.000 K/mm3 (0.0-0.012); Nucleated Red Blood Cells Perc 0.0 % (0.0-0.2); Platelet Count Result 237 k/mm3 (150-375); Red Blood Count 5.19 M/mm3 (4.6-6.20); White Blood Count 12.6 K/mm3 (4.5-10.0)
[2025-07-10 12:48] LABS: Alanine Aminotransferase 30 U/L (6-50); Albumin Level 4.2 g/dL (3.5-5.1); Alkaline Phosphatase 89 U/L (38-126); Anion Gap 9 mmol/L (4-12); Aspartate Amino Transferase 28 U/L (17-59); Bilirubin,Total 0.5 mg/dL (0.2-1.3); Blood Urea Nitrogen 12 mg/dL (9-20); Calcium 9.4 mg/dL (8.4-10.2); Carbon Dioxide 27 mmol/L (22-30); Chloride 102 mmol/L (98-107); Estimated CRCL calculation 71 ml/min; Estimated Glomerular Filt Rate 56; Glucose 101 mg/dL (65-110); Potassium 4.1 mmol/L (3.4-5.0); Sodium 138 mmol/L (137-145); Total Protein 7.5 g/dL (6.3-8.2)
[2025-07-10 13:50] VITALS: BP 134/81; PULSE 79; RESP 17; TEMP 36.5; O2SAT 100
[2025-07-10 13:55] VITALS: BP 135/79; PULSE 79; RESP 14; O2SAT 100
--- NOTE | 2025-07-10 14:38 | ED.ABDPAIN ---
HPI - Abdominal Pain General Chief Complaint: Abdominal Pain Stated Complaint: left flank pain Time Seen by Provider: 07/10/25 14:02 Source: patient Mode of arrival: ambulatory Limitations: no limitations History of Present Illness HPI narrative: Patient presents with left flank pain that began yesterday hematuria. History of kidney stone but no procedure; this feels the same. Was at [facility] last night and Xray performed which was initially read as no stone but it was sent for a second read and he was notified there was concern for stone, CT recommended. No fevers/chills. Not on anticoagulation or steroids or NSAIDs. Does not follow with a urologist. Passed his other stone fairly quickly. Sees a neurologist as he is on Umgality shot for headaches; due to see again on the . Related Data Allergies Allergy/AdvReac Type Severity Reaction Status Date / Time lactose Allergy Unknown BLOATING, Verified 07/10/25 11:31 GAS, ABD PAIN, DIARRHEA PMFSH Past Medical History Medical History History of renal calculi Chronic headaches Diarrhea Irritable bowel syndrome with diarrhea GERD (gastroesophageal reflux disease) Surgical History Surgical History History of vasectomy Family History Family History Father Diabetes mellitus Grandparent Diabetes mellitus Social History Social History Years smoked: 7 Smoking status: Current some day smoker Tobacco type: cigarettes Second hand tobacco smoke exposure: No Alcohol intake: current Alcohol use details: socially Substance use: never Substance use type: does not use Living arrangements: with family Gender identity (if verbalized by the patient): Male Spiritual care concerns: No Exam Narrative: GENERAL: Well-appearing, well-nourished, and in no acute distress. HEAD: Normocephalic, atraumatic. EYES: Non injected, non icteric ENT: Nares clear, no rhinorrhea or epistaxis. Gross auditory acuity intact. NECK: Supple. No meningismus. CHEST: Speaking in full sentences. No respiratory distress. HEART: Regular rate and rhythm. . ABDOMEN: Soft, nondistended. No rigidity or guarding. Not peritoneal EXTREMITIES: Normal range of motion. No lower extremity edema. SKIN: Warm, dry, no rash. NEURO: No focal deficits. Alert and oriented. Answering questions. Following commands. Normal speech without aphasia or dysarthria. PSYCH: Normal mood and affect. Course Vital Signs Vital signs: Vital Signs Temperature 98.2 F 07/10/25 11:26 Pulse Rate 83 07/10/25 11:26 Respiratory Rate 16 07/10/25 11:26 Blood Pressure 140/85 07/10/25 11:26 Pulse Oximetry 98 07/10/25 11:26 Oxygen Delivery Room Air 07/10/25 11:26 Temperature 97.7 F 07/10/25 13:50 Pulse Rate 78 07/10/25 17:27 Respiratory Rate 15 07/10/25 17:27 Blood Pressure 130/81 07/10/25 17:27 Pulse Oximetry 100 07/10/25 17:27 Oxygen Delivery Room Air 07/10/25 13:50 MDM - Abdominal Pain MDM Narrative Medical decision making narrative: Patient presents with left flank pain since yesterday. In the emergency department they are afebrile with vital signs within normal limits. Urinalysis without signs of infection. He has a leukocytosis. Morphine ordered for pain. Patient has an acute kidney injury. 1 L IV fluids ordered. I did speak with on-call urologist Dr Banks given the CT interpretation however given the size and location, patient otherwise seems to be an appropriate candidate for expulsion therapy and urology agrees. Noted that he did have a slight white count and he had an MAGDALENO but without evidence of infection on urinalysis. Patient had been given ketorolac and tamsulosin and discharge instructions printed. I was then informed that patient had worsening pain particularly when the IV fluids stopped. He was given Dilaudid. Upon reassessment approximately 10 minutes later he states that his pain is back to where it was when he arrived, though that is to say bearable. Advised to continue expulsion therapy meds, follow up with urology, and return if new/worsening symptoms. Differential Diagnosis Differential diagnosis: Likely abdominal pain, calculus of kidney, constipation and other (UTI, pyelo; MSK strain) Lab Data Attestation: I reviewed the patient's lab results. 07/10/25 12:16 07/10/25 12:16 Labs: Lab Results 07/10/25 07/10/25 Range/Units 11:42 12:16 WBC 12.6 H (4.5-10.0) K/mm3 RBC 5.19 (4.6-6.20) M/mm3 Hgb 14.9 (14.0-18.0) g/dL Hct 42.5 (42.0-52.0) % MCV 81.9 (80-100) fl MCH 28.7 (26-34) pg MCHC 35.1 (32-36) g/dl RDW 12.5 (11.5-14.5) % Plt Count 237 (150-375) k/mm3 MPV 9.4 (7.4-10.4) fl Immature Gran % (Auto) 0.4 (0-0.5) % Neut % (Auto) 75.2 H (45.5-73.1) % Lymph % (Auto) 15.1 L (18.3-44.2) % [place] % (Auto) 8.6 H (2.6-8.5) % Eos % (Auto) 0.5 (0-4.4) % Baso % (Auto) 0.2 (0.2-1.2) % Lymph # (Auto) 1.90 (0.9-3.2) K/mm3 [place] # (Auto) 1.1 H (0.1-0.6) K/mm3 Eos # (Auto) 0.1 (0-0.3) K/mm3 Baso # (Auto) 0.0 (0.0-0.1) K/mm3 Abs Immat Gran (auto) 0.05 H (0.00-0.031) K/mm3 Absolute Neuts (auto) 9.5 H (1.3-6.7) K/mm3 Absolute Nucleated RBC 0.000 (0.0-0.012) K/mm3 Nucleated RBC % 0.0 (0.0-0.2) % Sodium 138 (137-145) mmol/L Potassium 4.1 (3.4-5.0) mmol/L Chloride 102 (98-107) mmol/L Carbon Dioxide 27 (22-30) mmol/L Anion Gap 9 (4-12) mmol/L BUN 12 (9-20) mg/dL Creatinine 1.44 H (0.7-1.3) mg/dL Estim Creat Clear Calc 71 ml/min Estimated GFR 56 L (59 - ) Glucose 101 (65-110) mg/dL Calcium 9.4 (8.4-10.2) mg/dL Total Bilirubin 0.5 (0.2-1.3) mg/dL AST 28 (17-59) U/L ALT 30 (6-50) U/L Alkaline Phosphatase 89 (38-126) U/L Total Protein 7.5 (6.3-8.2) g/dL Albumin 4.2 (3.5-5.1) g/dL Urine Color Yellow (Yellow) Urine Appearance Cloudy H (Clear) Urine pH 6.0 (5.0-9.0) Ur Specific [place] 1.013 (1.001-1.035) Urine Protein Negative (Negative) mg/dL Urine Glucose (UA) Negative (Negative) mg/dL Urine Ketones Negative (Negative) mg/dL Ur Blood (Man) Negative (Negative) Urine Nitrate Negative (Negative) Urine Bilirubin Negative (Negative) Urine Urobilinogen 0.2 (<2.0) mg/dL Leukocyte Esterase Rfl Negative (Negative) RELILY/UL Urine RBC 0-2 (0-2) /hpf Urine WBC 0-5 (0-3) /hpf Ur Squamous Epith Cells None seen (Few) /hpf Urine Bacteria None seen /hpf Urine Casts 3-5 Imaging Data Radiologist's impression: ITS Impressions Abdomen/Pelvis CT 07/10/25 14:55 IMPRESSION: 1. Obstructing 3 mm stone near the left ureterovesicular junction with mild left hydronephrosis and mildly delayed left nephrogram. Discharge Plan Discharge Clinical Impression: Acute left flank pain, Leukocytosis, MAGDALENO (acute kidney injury), Ureterovesical junction obstruction, Calculus of ureterovesical junction (UVJ) Patient Disposition: Home Condition: Stable Instructions: Antibiotic Form, Acute Kidney Injury (DC), How to Strain Your Urine (ED), Flank Pain (ED), Ureteral Stones (ED) Additional Instructions: You do have a 3 mm stone. It should pass in the next few days. Expulsion therapy medications can assist with this. You received 1st dose in the emergency department. Rest has been prescribed. Strain your urine. You can follow-up with urologist listed below. Return with any new/worsening symptoms. Patient Language: British Prescriptions: New tamsulosin [Flomax] 0.4 mg capsule 0.4 mg PO HS Qty: 14 0RF ketorolac 10 mg tablet 10 mg PO Q8H PRN (Reason: pain) 5 Days Qty: 14 0RF Rx Instructions: maximum total duration of 5 days from all oral, intranasal, or parenteral formulations; first dose in ED ondansetron 4 mg tablet,disintegrating 4 mg PO Q8H PRN (Reason: nausea and vomiting) Qty: 7 0RF No Action tamsulosin 0.4 mg capsule 0.4 mg PO DAILY Qty: 7 0RF Follow-up/Referrals: Moreno Banks MD [Physician, Urology] Nikko Dan MD [Primary Care Provider, Family Practice] Stand Alone Forms: Work/School Release IP Time of Disposition: 16:18
[2025-07-10] MEDS: MORPHINE SULFATE (*CRX) 4 MG/ML INJ IV PUSH (14:56)
[2025-07-10] MEDS: SODIUM CHLORIDE 0.9% IV 1,000 ML 999 ML IV CONT (15:00)
--- OUTSIDE RECORDS SUMMARY | 2025-07-10 15:26 | XMS_ITS | Clinical Summary ---
Author Organization [facility] Address [address] [place] [address] Care Team Providers Care Estimator And Drafter Name Role Phone Endy Nikki Vitale RN Unavailable [phone] Nikko Dan MD Primary Care Provider [phone] Source Comments [facility],non-owned Affiliates and Associated Physician Practices is amultiple site organization consisting of ambulatory clinics and hospital sitesin [place], [place], [place]. This disclosure is being madepursuant to the Care Everywhere program and may not contain all information available regarding this patient. 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 Gender Identity Not on file Sexual Orientation [...] patient's age to complete this [place] [address] [facility] [address] [place] [address] Advance Directives * Full Code (Latest Code Status on File) Date Activated Date Inactivated Comments 02/01/2014 4:49 PM 02/04/2014 3:52 PM Care Teams Estimator And Drafter Relationship Specialty Start Date End Date Nikko Dan MD [address] [place] [address] PCP - General Family Medicine 02/02/14 Nikki Schumacher, RN Residential Direct Support Professional 02/02/14
[2025-07-10] MEDS: KETOROLAC 15 MG/ML VIAL (*BKC) IV PUSH (16:29)
[2025-07-10] MEDS: TAMSULOSIN HCL 0.4 MG CAPSULE PO (16:29)
[2025-07-10] MEDS: HYDROmorphone HCL INJ (*CRX) 1 MG/ML SYR 0.5 MG IV PUSH (17:05)
[2025-07-10 17:27] VITALS: BP 130/81; PULSE 78; RESP 15; O2SAT 100
== END 2025-07-10 17:39 | disposition home or self-care (01) ==
PROVIDERS: Emergency Provider Student in an Organized Health Care Education/Training Program; PCP Family Medicine
DX: N13.2 Hydronephrosis with renal and ureteral calculous obstruction (principal); N17.9 Acute kidney failure, unspecified; D72.829 Elevated white blood cell count, unspecified; R10.A2 Flank pain, left side; F17.210 Nicotine dependence, cigarettes, uncomplicated; Z87.442 Personal history of urinary calculi; K21.9 Gastro-esophageal reflux disease without esophagitis
CPT/HCPCS: 36415; 74177; 80053; 81001; 85025; 96361; 96374; 96375; 99284; A9270; J1171; J1885; J2270; J7030; Q9967